=== PATIENT | female | born 1965 | race Caucasian/White ===

== ENCOUNTER 2016-12-21 19:07 | Emergency (ER) | payer OTHER ==
[~2016-12-21] VITALS: Ht 152.4 cm; Wt 102.0 kg
[~2016-12-21 19:07] MED LIST: ASPI-1079 PO; ATOR20TA PO; COR12 PO; FURO40TA5 PO; GABA-531 PO; IOHEXOL-300 100 ML BOTTLE ONE; KDUR PO; LISI-604 PO; LOSA50TA20 PO; NITR0.4T SL; RANI150C12 PO; SODIUM CHLORIDE 0.9% 10ML VIAL ONE
[2016-12-21] MEDS ORDERED: ONDANSETRON HCL 4MG/2ML VIAL IV STA (22:17)
[2016-12-21] MEDS ORDERED: SODIUM CHLORIDE 0.9% 1,000 ML IV ONE (22:17)
[2016-12-21 22:49] LABS: BASOPHILS % 0.7 % (0.0-2.0); EOSINOPHILS % 1.7 % (0.0-5.0); HEMATOCRIT. 34.2 % (36.0-48.0); HEMOGLOBIN. 11.4 g/dL (12.0-16.0); LYMPHOCYTES % 30.3 % (20.0-50.0); MEAN CORPUSCULAR HEMOGLOBIN 29.8 pg (28.0-32.0); MEAN CORPUSCULAR VOLUME 89.1 fL (81.0-99.0); MEAN PLATELET VOLUME 7.5 fl (7.4-10.4); MONOCYTES % 8.2 % (2.0-8.0); NEUTROPHILS % 59.1 % (40.0-76.0); PLATELET 280 x1000/uL (130-400); RED BLOOD CELL COUNT 3.84 mill/uL (4.2-5.4); RED CELL DISTRIBUTION WIDTH 12.8 % (11.6-14.6)
[2016-12-21 22:56] LABS: CHLORIDE 106 mEq/L (98-107)
[2016-12-21 22:58] LABS: CARBON DIOXIDE 26 mEq/L (21-32)
[2016-12-21 23:12] LABS: CLARITY URINE CLEAR (CLEAR); COLOR URINE YELLOW (YELLOW); GLUCOSE URINE NEGATIVE (NEGATIVE); KETONES URINE NEGATIVE (NEGATIVE); LEUKOCYTE ESTERASE URINE NEGATIVE (NEGATIVE); NITRITE URINE NEGATIVE (NEGATIVE); OCCULT BLOOD URINE 1+ (NEGATIVE); PROTEIN URINE NEGATIVE (NEGATIVE); UROBILINOGEN URINE 0.2 E.U./dL (0.2-1.0)
[2016-12-21] MEDS ORDERED: KETOROLAC 30MG/ML VIAL IV STA (23:43)
[2016-12-22 02:22] VITALS: BP 138/74
== END 2016-12-22 02:25 | disposition home or self-care (01) ==
LOC: ER 21:51
DX: R10.9 Unspecified abdominal pain (principal); Z87.440 Personal history of urinary (tract) infections; Z79.82 Long term (current) use of aspirin; I10 Essential (primary) hypertension; E78.00 Pure hypercholesterolemia, unspecified; Z95.0 Presence of cardiac pacemaker
CPT/HCPCS: 36415; 74177; 80053; 81001; 81025; 83690; 85025; 96374; 96375; 99285; A4216; J1885; J2405; J7030; Q9967; Z7610

== ENCOUNTER 2018-03-13 08:56 | Emergency (ER) | payer OTHER ==
[~2018-03-13] VITALS: Ht 152.4 cm; Wt 100.0 kg
[~2018-03-13 08:56] MED LIST changes: -IOHEXOL-300 100 ML BOTTLE ONE; -SODIUM CHLORIDE 0.9% 10ML VIAL ONE
[2018-03-13] MEDS ORDERED: ASPIRIN 81MG TABLET PO ONE (09:30)
[2018-03-13] MEDS ORDERED: ALBUTEROL (0.5%) 2.5MG/0.5ML NEB HHN ONE (09:45)
[2018-03-13 10:11] LABS: BASOPHILS % 0.9 % (0.0-2.0); EOSINOPHILS % 1.7 % (0.0-5.0); HEMATOCRIT. 36.1 % (36.0-48.0); LYMPHOCYTES % 30.4 % (20.0-50.0); MEAN CORPUSCULAR HEMOGLOBIN 30.4 pg (28.0-32.0); MEAN CORPUSCULAR VOLUME 91.5 fL (81.0-99.0); MEAN PLATELET VOLUME 8.1 fl (7.4-10.4); MONOCYTES % 6.7 % (2.0-8.0); NEUTROPHILS % 60.3 % (40.0-76.0); PLATELET 346 x1000/uL (130-400); RED BLOOD CELL COUNT 3.94 mill/uL (4.2-5.4); RED CELL DISTRIBUTION WIDTH 13.2 % (11.6-14.6)
[2018-03-13 10:26] LABS: CHLORIDE 105 mEq/L (98-107)
[2018-03-13] MEDS ORDERED: ALPRAZOLAM 0.5 MG TABLET PO ONE (10:30)
[2018-03-13] MEDS ORDERED: NITROGLYCERIN 0.4MG TABLET SL SL ONE (10:30)
[2018-03-13] MEDS ORDERED: KETOROLAC 30MG/ML VIAL IV ONE (11:45)
[2018-03-13 14:55] VITALS: BP 132/75
== END 2018-03-13 15:02 | disposition short-term general hospital (02) ==
LOC: ER 09:33 → SUPCPDRO 16:28 → CANBEDREQ 03-14 00:17
DX: R07.89 Other chest pain (principal); I11.0 Hypertensive heart disease with heart failure; I50.9 Heart failure, unspecified; E78.00 Pure hypercholesterolemia, unspecified; I25.2 Old myocardial infarction; J45.909 Unspecified asthma, uncomplicated; Z95.0 Presence of cardiac pacemaker
CPT/HCPCS: 36415; 71045; 80053; 83880; 84484; 85025; 93005; 96374; 99285; J1885

== ENCOUNTER 2018-11-30 04:45 | Emergency (ER) | payer OTHER ==
[~2018-11-30] VITALS: Ht 152.4 cm; Wt 114.0 kg
[~2018-11-30 04:45] MED LIST changes: -LOSA50TA20 PO; +LOSA50TA41 PO
[2018-11-30 07:45] LABS: CLARITY URINE CLEAR (CLEAR); COLOR URINE YELLOW (YELLOW); KETONES URINE NEGATIVE (NEGATIVE); LEUKOCYTE ESTERASE URINE 1+ (NEGATIVE); NITRITE URINE NEGATIVE (NEGATIVE); OCCULT BLOOD URINE 2+ (NEGATIVE); PROTEIN URINE NEGATIVE (NEGATIVE); SPECIFIC GRAVITY URINE 1.023 (1.005-1.030); UROBILINOGEN URINE 0.2 E.U./dL (0.2-1.0)
[2018-11-30 07:59] LABS: BASOPHILS % 1.1 % (0.0-2.0); CHLORIDE 106 mEq/L (98-107); EOSINOPHILS % 8.5 % (0.0-5.0); HEMATOCRIT. 34.9 % (36.0-48.0); HEMOGLOBIN. 11.8 g/dL (12.0-16.0); LYMPHOCYTES % 28.8 % (20.0-50.0); MEAN CORPUSCULAR HEMOGLOBIN 30.6 pg (28.0-32.0); MEAN CORPUSCULAR VOLUME 90.2 fL (81.0-99.0); MEAN PLATELET VOLUME 7.6 fl (7.4-10.4); MONOCYTES % 5.7 % (2.0-8.0); NEUTROPHILS % 55.9 % (40.0-76.0); PLATELET 311 x1000/uL (130-400); RED BLOOD CELL COUNT 3.87 mill/uL (4.2-5.4)
[2018-11-30 08:09] LABS: CREATINE KINASE 63 IU/L (26-192)
[2018-11-30 08:10] LABS: CREATINE KINASE MB FRACTION < 1.0 ng/mL (0.5-3.6)
[2018-11-30 08:20] LABS: *AMPHETAMINES SCREEN URINE NEGATIVE (NEGATIVE); *BENZODIAZEPINES SCREEN URINE NEGATIVE (NEGATIVE); *COCAINE SCREEN URINE NEGATIVE (NEGATIVE); METHADONE URINE SCREEN NEGATIVE (NEGATIVE); OPIATES URINE SCREEN PRESUMTIVE POSITIVE (NEGATIVE); PHENCYCLIDINE URINE SCREEN NEGATIVE (NEGATIVE)
[2018-11-30 08:21] LABS: CANNABINOID URINE SCREEN NEGATIVE (NEGATIVE)
[2018-11-30 08:27] LABS: *BARBITURATES SCREEN URINE NEGATIVE (NEGATIVE)
[2018-11-30] MEDS ORDERED: CEFTRIAXONE 1 G PREMIX 50 ML IV ONE (08:30)
[2018-11-30] MEDS ORDERED: KETOROLAC 30MG/ML VIAL IV ONE (08:30)
[2018-11-30] MEDS ORDERED: DEXAMETHASONE 10 MG/ML VIAL IV ONE (10:15)
[2018-11-30 14:06] VITALS: BP 150/78
== END 2018-11-30 14:07 | disposition home or self-care (01) ==
LOC: ER 04:45
DX: M54.5 Low back pain (principal); R07.89 Other chest pain; M54.31 Sciatica, right side; I10 Essential (primary) hypertension; E78.00 Pure hypercholesterolemia, unspecified; J44.9 Chronic obstructive pulmonary disease, unspecified; Z95.0 Presence of cardiac pacemaker
CPT/HCPCS: 36415; 71045; 72125; 80053; 80305; 81003; 82550; 82553; 83690; 83880; 84484; 85025; 93005; 96374; 96375; 99284; J0696; J1100; J1885

== ENCOUNTER 2019-11-10 10:32 | Emergency (ER) | payer MEDICARE, OTHER ==
[~2019-11-10] VITALS: Ht 160 cm; Wt 93.0 kg
[2019-11-10] MEDS ORDERED: KETOROLAC 60MG/2ML VIAL IM STA (11:26)
[2019-11-10 11:59] LABS: BASOPHILS % 1.1 % (0.0-2.0); EOSINOPHILS % 7.4 % (0.0-5.0); HEMATOCRIT. 33.6 % (36.0-48.0); HEMOGLOBIN. 11.3 g/dL (12.0-16.0); LYMPHOCYTES % 28.3 % (20.0-50.0); MEAN CORPUSCULAR HEMOGLOBIN 30.1 pg (28.0-32.0); MEAN CORPUSCULAR VOLUME 89.7 fL (81.0-99.0); MEAN PLATELET VOLUME 7.7 fl (7.4-10.4); MONOCYTES % 7.2 % (2.0-8.0); PLATELET 315 x1000/uL (130-400); RED BLOOD CELL COUNT 3.75 mill/uL (4.2-5.4); RED CELL DISTRIBUTION WIDTH 13.7 % (11.6-14.6)
[2019-11-10 12:06] LABS: CHLORIDE 105 mEq/L (98-107)
[2019-11-10 12:40] LABS: CLARITY URINE CLEAR (CLEAR); COLOR URINE YELLOW (YELLOW); KETONES URINE NEGATIVE (NEGATIVE); LEUKOCYTE ESTERASE URINE NEGATIVE (NEGATIVE); NITRITE URINE NEGATIVE (NEGATIVE); OCCULT BLOOD URINE TRACE (NEGATIVE); PH URINE 6.5 (4.5-8.0); PROTEIN URINE NEGATIVE (NEGATIVE); SPECIFIC GRAVITY URINE 1.009 (1.005-1.030); UROBILINOGEN URINE 0.2 E.U./dL (0.2-1.0)
[2019-11-10 18:42] VITALS: BP 141/63
== END 2019-11-10 18:47 | disposition home or self-care (01) ==
LOC: ER 10:32
DX: M54.9 Dorsalgia, unspecified (principal); R30.0 Dysuria; I10 Essential (primary) hypertension; E78.00 Pure hypercholesterolemia, unspecified
CPT/HCPCS: 36415; 74176; 80053; 81003; 85025; 87040; 87086; 93005; 96372; 99285; J1885

== ENCOUNTER 2021-04-15 07:02 | Emergency (ER) | payer BC, OTHER ==
[~2021-04-15] VITALS: Ht 152.4 cm; Wt 107.0 kg
[~2021-04-15 07:02] MED LIST changes: -GABA-531 PO; +GABA-532 PO; -LISI-604 PO; +LISI20TA31 PO
[2021-04-15 07:09] VITALS: BP 162/71
[2021-04-15] MEDS ORDERED: ALBU6.7H9 INH (10:22)
== END 2021-04-15 10:58 | disposition home or self-care (01) ==
LOC: ER 07:02
DX: J02.9 Acute pharyngitis, unspecified (principal); I10 Essential (primary) hypertension; Z20.822 Contact with and (suspected) exposure to COVID-19; Z98.890 Other specified postprocedural states
CPT/HCPCS: 71045; 87426; 99284

== ENCOUNTER 2021-11-14 03:21 | Emergency (ER) | payer BC, OTHER ==
[~2021-11-14] VITALS: Ht 152.4 cm; Wt 112.0 kg
[~2021-11-14 03:21] MED LIST changes: +ALBU6.7H9 INH
[2021-11-14 05:05] LABS: BASOPHILS % 0.9 % (0.0-2.0); EOSINOPHILS % 1.5 % (0.0-5.0); HEMATOCRIT. 34.3 % (36.0-48.0); HEMOGLOBIN. 11.1 g/dL (12.0-16.0); LYMPHOCYTES % 49.7 % (20.0-50.0); MEAN CORPUSCULAR HEMOGLOBIN 28.8 pg (28.0-32.0); MEAN CORPUSCULAR VOLUME 88.6 fL (81.0-99.0); MEAN PLATELET VOLUME 7.8 fl (7.4-10.4); MONOCYTES % 6.9 % (2.0-8.0); PLATELET 323 x1000/uL (130-400); RED BLOOD CELL COUNT 3.88 mill/uL (4.2-5.4); RED CELL DISTRIBUTION WIDTH 14.2 % (11.6-14.6)
[2021-11-14 05:12] LABS: CHLORIDE 103 mEq/L (98-107)
[2021-11-14 06:08] LABS: HCG SCREEN NEGATIVE
[2021-11-14] MEDS ORDERED: TOPUD PO (07:43)
[2021-11-14 08:29] VITALS: BP 169/77
== END 2021-11-14 08:34 | disposition home or self-care (01) ==
LOC: ER 03:21
DX: R10.84 Generalized abdominal pain (principal); M54.9 Dorsalgia, unspecified; E87.6 Hypokalemia; I11.9 Hypertensive heart disease without heart failure; Z95.0 Presence of cardiac pacemaker
CPT/HCPCS: 36415; 74176; 80053; 84703; 85025; 99284

== ENCOUNTER 2022-09-04 09:32 | Emergency (ER) | payer BC, MEDICAID ==
[~2022-09-04] VITALS: Ht 152.4 cm; Wt 108.9 kg
[~2022-09-04 09:32] MED LIST changes: +ALBU6.7H3 INH; -ALBU6.7H9 INH; +TOPUD PO
[2022-09-04 10:28] LABS: CHLORIDE 105 mEq/L (98-107)
[2022-09-04 10:30] LABS: BASOPHILS % 0.6 % (0.0-2.0); EOSINOPHILS % 1.8 % (0.0-5.0); HEMOGLOBIN. 11.9 g/dL (12.0-16.0); LYMPHOCYTES % 32.6 % (20.0-50.0); MEAN CORPUSCULAR HEMOGLOBIN 29.9 pg (28.0-32.0); MONOCYTES % 7.1 % (2.0-8.0); NEUTROPHILS % 57.9 % (40.0-76.0); PLATELET 342 x1000/uL (130-400); RED BLOOD CELL COUNT 3.97 mill/uL (4.2-5.4); RED CELL DISTRIBUTION WIDTH 13.9 % (11.6-14.6)
[2022-09-04 11:47] LABS: CLARITY URINE CLEAR (CLEAR); COLOR URINE YELLOW (YELLOW); KETONES URINE NEGATIVE (NEGATIVE); LEUKOCYTE ESTERASE URINE 1+ (NEGATIVE); NITRITE URINE NEGATIVE (NEGATIVE); OCCULT BLOOD URINE 1+ (NEGATIVE); PH URINE 6.5 (4.5-8.0); PROTEIN URINE NEGATIVE (NEGATIVE); SPECIFIC GRAVITY URINE 1.016 (1.005-1.030); UROBILINOGEN URINE 0.2 E.U./dL (0.2-1.0)
[2022-09-04] MEDS ORDERED: KETOROLAC 30MG/ML VIAL IV ONE (12:00)
[2022-09-04] MEDS ORDERED: ONDANSETRON HCL 4MG/2ML INJ IV ONE (12:00)
[2022-09-04] MEDS ORDERED: TOPUD PO (13:16)
[2022-09-04] MEDS ORDERED: NITR100C PO (13:17)
[2022-09-04 13:35] VITALS: BP 160/97
== END 2022-09-04 13:42 | disposition home or self-care (01) ==
LOC: ER 09:32
DX: N39.0 Urinary tract infection, site not specified (principal); R00.2 Palpitations; R42 Dizziness and giddiness; E78.00 Pure hypercholesterolemia, unspecified; I10 Essential (primary) hypertension; Z79.899 Other long term (current) drug therapy
CPT/HCPCS: 36415; 71045; 76705; 80053; 81003; 84484; 85025; 93005; 96374; 96375; 99285; J1885; J2405

== ENCOUNTER 2023-02-16 20:49 | Emergency (ER) | payer BC, MEDICAID ==
[~2023-02-16] VITALS: Ht 149.9 cm; Wt 107.2 kg
[~2023-02-16 20:49] MED LIST changes: +NITR100C PO
[2023-02-16 21:00] VITALS: PULSE 94
[2023-02-16 21:19] VITALS: BP 158/85; RESP 14; TEMP 98.1; O2SAT 97
[2023-02-16] MEDS ORDERED: AMOX1TAB16 MT (22:06)
== END 2023-02-17 01:41 | disposition home or self-care (01) ==
LOC: ER 20:49
DX: K04.7 Periapical abscess without sinus (principal); K02.9 Dental caries, unspecified; E78.00 Pure hypercholesterolemia, unspecified; I10 Essential (primary) hypertension; Z95.0 Presence of cardiac pacemaker; Z79.899 Other long term (current) drug therapy
CPT/HCPCS: 99283